=== PATIENT | male | born 1940 | race Native Hawaiian/Other Pacific Islander ===

== ENCOUNTER 2017-06-29 08:46 | Outpatient (CLI) | payer OTHER | END 2017-06-29 19:05 | disposition home or self-care (01) | LOC: LABW 08:46 | PROVIDERS: Internal Medicine Cardiovascular Disease | DX: E78.4 Other hyperlipidemia (principal) | CPT/HCPCS: 36415; 80061; 80076 ==

== ENCOUNTER 2018-05-02 09:05 | Outpatient (CLI) | payer OTHER | END 2018-05-02 22:02 | disposition home or self-care (01) | LOC: LABW 09:05 | PROVIDERS: Internal Medicine Cardiovascular Disease | DX: E78.4 Other hyperlipidemia (principal) | CPT/HCPCS: 36415; 80061 ==

== ENCOUNTER 2018-10-07 10:30 | Outpatient (CLI) | payer OTHER | END 2018-10-07 19:48 | disposition home or self-care (01) | LOC: LABW 10:30 | DX: K59.1 Functional diarrhea (principal); K64.0 First degree hemorrhoids | CPT/HCPCS: 82272; 82705; 83630; 87015; 87045; 87324; 87328; 87329; 87449; 87899 ==

== ENCOUNTER 2020-01-24 10:40 | Outpatient (CLI) | payer OTHER | END 2020-01-24 19:24 | disposition home or self-care (01) | LOC: RAD 10:40 | DX: R05 Cough (principal); R06.02 Shortness of breath ==

== ENCOUNTER 2020-02-16 19:48 | Inpatient (IN) | payer OTHER ==
[~2020-02-16] VITALS: Ht 170.2 cm; Wt 67.3 kg
[2020-02-16 20:05] VITALS: BP 170/64; TEMP 99.2
[2020-02-16 21:24] LABS: PLATELET COUNT 211 K/uL (142-355)
[2020-02-16 21:29] LABS: POTASSIUM 4.1 mmol/L (3.6-5.2); SODIUM 133 mmol/L (136-145)
[2020-02-16 22:30] VITALS: BP 108/66
[2020-02-16 22:45] VITALS: BP 93/57
[2020-02-16 22:57] LABS: PARTIAL THROMBOPLASTIN TIME 26.2 SECONDS (24.5-33.6)
[2020-02-16 23:00] VITALS: BP 95/57
[2020-02-16 23:45] VITALS: BP 96/64
[2020-02-17] VITALS (15 sets, daily range): BP systolic 86–122; BP diastolic 51–5693; TEMP 97.7–99.7; Ht 170.2 cm; Wt 67.3 kg
[2020-02-17] MEDS ORDERED: ASPIR-8181 MG PO (05:56)
[2020-02-17] MEDS ORDERED: ROSU10TA PO (05:57)
[2020-02-17] MEDS ORDERED: METO50TA27 PO (06:00)
[2020-02-17] MEDS ORDERED: RAMI10CA PO (06:00)
[2020-02-17] MEDS ORDERED: AMLODIPINE BESYLATE PO (06:00)
[2020-02-17] MEDS ORDERED: PLETAL PO (06:02)
[2020-02-17] MEDS ORDERED: VITAMIN D2000 UNI3 PO (06:03)
[2020-02-17] MEDS ORDERED: EUTHYROX50 MCG PO (06:03)
[2020-02-17] MEDS ORDERED: DICYCLOMINE HYD10 MG PO (06:03)
[2020-02-18] VITALS: BP 94/61; TEMP 98.6
[2020-02-18 04:00] VITALS: BP 99/59; TEMP 98.6
[2020-02-18 08:06] VITALS: BP 100/67; TEMP 98.8
[2020-02-18 12:05] VITALS: BP 83/53; TEMP 98.1
[2020-02-18 16:28] VITALS: BP 81/48; TEMP 98.2
[2020-02-18 20:00] VITALS: BP 91/58; TEMP 98.6
[2020-02-19] VITALS: BP 81/50; TEMP 98.8
[2020-02-19 04:00] VITALS: BP 83/53; TEMP 98.3
[2020-02-19 06:04] LABS: PLATELET COUNT 160 K/uL (142-355)
[2020-02-19 06:21] LABS: POTASSIUM 3.6 mmol/L (3.6-5.2)
[2020-02-19 08:00] VITALS: BP 104/65; TEMP 97.8
[2020-02-19 12:00] VITALS: BP 101/46; TEMP 97.6
[2020-02-19 16:00] VITALS: BP 101/46; TEMP 97.6
== END 2020-02-19 17:45 | disposition home or self-care (01) | DRG 291 ==
LOC: ED 19:48 → MED/SURG 02-17 02:50
PROVIDERS: Family Medicine; ADMIT Internal Medicine
DX: I50.20 Unspecified systolic (congestive) heart failure (principal); J18.8 Other pneumonia, unspecified organism; E03.8 Other specified hypothyroidism; I25.10 Atherosclerotic heart disease of native coronary artery without angina pectoris; E78.00 Pure hypercholesterolemia, unspecified; I11.0 Hypertensive heart disease with heart failure
CPT/HCPCS: 36415; 36600; 80053; 80202; 81000; 82550; 82805; 83605; 83880; 84484; 85027; 85379; 85610; 85730; 87040; 87070; 87205; 87502; 87651; 93005; 94640; 94664; 94760; 96365; 96374; 99284; J0456; J0696; J1100; J1650; J1940; J3370; Q9963

== ENCOUNTER 2020-09-02 12:47 | Outpatient (CLI) | payer OTHER ==
[~2020-09-02 12:47] MED LIST: AMLODIPINE BESYLATE PO; ASPIR-8181 MG PO; DICYCLOMINE HYD10 MG PO; EUTHYROX50 MCG PO; METO50TA27 PO; PLETAL PO; RAMI10CA PO; ROSU10TA PO; VITAMIN D2000 UNI3 PO
== END 2020-09-02 23:45 | disposition home or self-care (01) ==
LOC: LAB 12:47
DX: R05 Cough (principal); R06.02 Shortness of breath; R50.9 Fever, unspecified; Z11.59 Encounter for screening for other viral diseases
CPT/HCPCS: 87635; G2023; U0003

== ENCOUNTER 2020-09-10 08:55 | Outpatient (CLI) | payer OTHER | END 2020-09-10 19:08 | disposition home or self-care (01) | LOC: LAB 08:55 | DX: Z03.818 Encounter for observation for suspected exposure to other biological agents ruled out (principal); R06.02 Shortness of breath | CPT/HCPCS: 87635; G2023; U0003 ==

== ENCOUNTER 2020-10-14 12:54 | Outpatient (CLI) | payer OTHER | END 2020-10-14 23:21 | disposition home or self-care (01) | LOC: LAB 12:54 | PROVIDERS: ATTEND Nurse Practitioner Family | DX: R06.02 Shortness of breath (principal); R05 Cough; Z11.59 Encounter for screening for other viral diseases | CPT/HCPCS: 87635; G2023; U0003 ==

== ENCOUNTER 2020-11-18 10:07 | Outpatient (CLI) | payer OTHER | END 2020-11-18 19:36 | disposition home or self-care (01) | LOC: US 10:07 | PROVIDERS: ATTEND Internal Medicine Gastroenterology | DX: R10.11 Right upper quadrant pain (principal) ==

== ENCOUNTER 2021-01-21 10:03 | Outpatient (CLI) | payer OTHER | END 2021-01-21 19:37 | disposition home or self-care (01) | LOC: LAB 10:03 | PROVIDERS: ATTEND Nurse Practitioner Family | DX: R05 Cough (principal); R50.9 Fever, unspecified; R63.0 Anorexia; R19.7 Diarrhea, unspecified; Z11.59 Encounter for screening for other viral diseases | CPT/HCPCS: 87635; G2023; U0003 ==

== ENCOUNTER 2021-02-04 10:03 | Outpatient (CLI) | payer OTHER | END 2021-02-04 19:17 | disposition home or self-care (01) | LOC: LAB 10:03 | PROVIDERS: ATTEND Nurse Practitioner Family | DX: K58.9 Irritable bowel syndrome, unspecified (principal); R19.7 Diarrhea, unspecified; R50.9 Fever, unspecified | CPT/HCPCS: 82272; 83630; 87015; 87045; 87324; 87328; 87329; 87449; 87899 ==

== ENCOUNTER 2021-06-05 13:18 | Outpatient (CLI) | payer OTHER ==
[2021-06-05 13:57] LABS: PLATELET COUNT 212 K/uL (142-355)
[2021-06-05 14:20] LABS: POTASSIUM 4.9 mmol/L (3.6-5.2)
== END 2021-06-05 19:49 | disposition home or self-care (01) ==
LOC: LABW 13:18
PROVIDERS: ATTEND Nurse Practitioner Family
DX: R10.13 Epigastric pain (principal)
CPT/HCPCS: 36415; 80053; 82150; 83605; 83690; 85027; 87040; Q9963

== ENCOUNTER 2021-06-18 08:09 | Outpatient (CLI) | payer OTHER | END 2021-06-18 19:30 | disposition home or self-care (01) | LOC: NM 08:09 | PROVIDERS: ATTEND Nurse Practitioner Family | DX: R10.11 Right upper quadrant pain (principal) | CPT/HCPCS: A9537 ==